=== PATIENT | female | born 1940 | race Caucasian/White ===

== ENCOUNTER → 2018-02-21 | Day surgery (SDC) | payer MEDICARE, OTHER ==
--- NOTE | 2018-02-16 19:49 | HP ---
CC: Dr. Warner * HISTORY AND PHYSICAL/CONSULTATION NOTE: DATE OF ADMISSION FOR SURGERY: 02/21/18 and 03/07/18 HISTORY OF PRESENT ILLNESS: Chuyita Miller is a 77-year-old woman scheduled for cataract extraction of the left eye under local anesthesia on 02/21/18 and on the right eye on 03/07/18. PAST MEDICAL HISTORY: The patient's medical problems are as follows: 1. Chronic kidney disease, stage 4. 2. Essential hypertension. 3. Type 2 diabetes mellitus with nephropathy. 4. Asthma. 5. Chronic venous insufficiency. 6. Spinal stenosis, lumbar region. 7. Osteoarthritis. 8. Hyperlipidemia. 9. History of obstructive sleep apnea. 10. Gastroesophageal reflux disease. 11. Aortic stenosis. 12. History of carotid stenosis status post endarterectomy. 13. History of paroxysmal atrial fibrillation. 14. Depression. 15. History of left branch retinal artery occlusion in 2014. PAST SURGICAL HISTORY: Prior surgeries included carotid endarterectomy, tonsillectomy. CURRENT MEDICATIONS: 1. Escitalopram 10 mg daily. 2. Sodium bicarb 650 mg 4 times a day. 3. Actos 45 mg every day. 4. Losartan 50 mg every day. 5. Breo Ellipta 200/25 every day. 6. Diltiazem 120 mg daily. 7. Montelukast 10 mg every day. 8. Omeprazole 20 mg every day. 9. Allopurinol 300 mg daily. 10. Glipizide 5 mg a half tablet every day. 11. ProAir 2 puffs q.4 h. p.r.n. asthma. 12. Patanol 0.1% eye drops twice a day as needed for allergies. 13. Aspirin 81 mg every day. 14. Iron bisglycinate 25 mg every day. 15. B12 of 2500 mcg daily. 16. Acetaminophen 325 mg 2 tablets every 4 hours as needed. ALLERGIES: To PHENOBARBITAL, INDOMETHACIN, AUGMENTIN, and/or ERYTHROMYCIN caused elevated LFTs. FAMILY HISTORY: Noncontributory. SOCIAL AND PERSONAL HISTORY: The patient is single. She lives in an apartment in [facility]. 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 REVIEW OF SYSTEMS: Otherwise positive for easy bruisability, swelling of her ankles, nocturia, neck and ankle pain, and depression. PHYSICAL EXAMINATION GENERAL: She is an elderly female, in no acute distress. VITAL SIGNS: Blood pressure 136/60, pulse 72, respirations 18, temperature 96.8. HEENT: Atraumatic, normocephalic. Full EOMs. Mouth: Pharynx unremarkable. NECK: Supple. There is no thyromegaly. No bruits. Nodes are without adenopathy. BREASTS: Without masses. CHEST: Clear. HEART: Normal S1 and S2. There is a grade 2/6 systolic murmur at the base. No rubs or gallops. Pulses are full throughout. ABDOMEN: Soft, nontender. There is no hepatosplenomegaly. There are no hernias or masses. Bowel sounds are active. EXTREMITIES: Without cyanosis, clubbing, or edema at this time. MUSCULOSKELETAL: Mild bilateral bunions. NEUROLOGIC: She is alert, oriented. Cranial nerves are intact. She has normal strength in the lower extremities. DTRs are 2+. Knee and ankle jerks are symmetric. Monofilament sensation is intact. Gait is normal. She is tearful. SKIN: Warm and dry with tattoos. IMPRESSION: The patient has medical problems as noted above. There are no contraindications to surgery as planned. I will be available in the perioperative period should any questions or problems arise. [id number]/[facility] #: [id number] [place]
[~2018-02-21] MED LIST: Acetaminophen TAB* 325 MG PO PRN; Buffered Lidocaine 0.9% SYRIN* 5 ML/SYR SYRINGE INTRADERM ONE; Cyclopentolate 1% OPTH.SOL* 2 ML BTL ONE; Ketorolac 0.5% OPHTH (NF) 0.5 % 5 ML BTL ONE; Lidocaine 1%* 5 ML VIAL ONE; Lidocaine 2% EPI 1:200000 MPF*10-20 ML VIAL ONE; Midazolam* 1 MG/ML 2 ML VIAL (2 MG) ONE; Neomycin/Polymy/Dex OPTH.SUSP* MAXITROL 0.1% 5 ML ONE; Phenylephrine 2.5% OPTH.SOL* 2 ML BTL ONE; Povidone Iodine 5% OPTH* 30 ML BTL ONE; Proparacaine 0.5% OPHTH.SOL* 15 ML BTL ONE; acetaZOLAMIDE TAB* 250 MG ONE
[2018-02-21 14:29] VITALS: BP 131/46
--- NOTE | 2018-02-22 03:58 | OP ---
DATE OF OPERATION: 02/21/18 [facility] DATE OF : 40 SURGEON: Nasir Warner MD PREOPERATIVE DIAGNOSIS: Cataract, left eye. POSTOPERATIVE DIAGNOSIS: Cataract, left eye. OPERATIVE PROCEDURE: Extracapsular cataract extraction with intraocular lens implant left eye. DESCRIPTION OF PROCEDURE: The patient was brought to the operating room after being given 1/2% Alcaine with epinephrine drops in the preoperative area. The eye was prepped and draped in the usual sterile fashion. Sterile drape and eyelid speculum were placed. Again, topical 1/2% Alcaine with epinephrine was given. A paracentesis incision was made at the 3 o'clock position with the No.75 blade. Clear cornea incision 2.2 x 2.2-mm was created at the 6 o'clock position starting at the anterior limbus using the 2.2-mm keratome. The anterior chamber was irrigated with 0.4 mL of 1% non-preservative intracameral lidocaine and filled with DisCoVisc. A capsulorrhexis was completed using the cystotome and the Utrata forceps. Hydrodissection was performed with balanced salt solution. The lens nucleus was removed with the Phacoemulsification handpiece without incident. Cortex was removed with the irrigation-aspiration handpiece. The capsular bag was re-inflated using DisCoVisc and an [id number] 20.5 implant was inserted with the shooter. The irrigation-aspiration handpiece was used to remove all residual DisCoVisc. The eye was refilled with balanced salt solution and the wound checked and found to be watertight. Topical Maxitrol drops were given. [id number]/[facility] #: [id number] [facility]
== END | disposition home or self-care (01) ==
LOC: OREAST 11:26
PROVIDERS: ATTEND Specialist
DX: H25.812 Combined forms of age-related cataract, left eye (principal); H34.232 Retinal artery branch occlusion, left eye; E11.9 Type 2 diabetes mellitus without complications; Z79.84 Long term (current) use of oral hypoglycemic drugs; J44.9 Chronic obstructive pulmonary disease, unspecified; G47.33 Obstructive sleep apnea (adult) (pediatric); N18.4 Chronic kidney disease, stage 4 (severe); I12.9 Hypertensive chronic kidney disease with stage 1 through stage 4 chronic kidney disease, or unspecified chronic kidney disease; M19.90 Unspecified osteoarthritis, unspecified site; I48.0 Paroxysmal atrial fibrillation; E78.5 Hyperlipidemia, unspecified; K21.9 Gastro-esophageal reflux disease without esophagitis
CPT/HCPCS: A9270-GY; J2250; V2632

== ENCOUNTER 2018-03-07 08:56 | Day surgery (SDC) | payer MEDICARE, OTHER ==
[~2018-03-07 08:56] MED LIST changes: -Acetaminophen TAB* 325 MG PO PRN; -Cyclopentolate 1% OPTH.SOL* 2 ML BTL ONE; -Ketorolac 0.5% OPHTH (NF) 0.5 % 5 ML BTL ONE; -Lidocaine 1%* 5 ML VIAL ONE; -Lidocaine 2% EPI 1:200000 MPF*10-20 ML VIAL ONE; -Midazolam* 1 MG/ML 2 ML VIAL (2 MG) ONE; -Neomycin/Polymy/Dex OPTH.SUSP* MAXITROL 0.1% 5 ML ONE; -Phenylephrine 2.5% OPTH.SOL* 2 ML BTL ONE; -Povidone Iodine 5% OPTH* 30 ML BTL ONE; -Proparacaine 0.5% OPHTH.SOL* 15 ML BTL ONE; -acetaZOLAMIDE TAB* 250 MG ONE
[2018-03-07] MEDS ORDERED: Midazolam* 1 MG/ML 2 ML VIAL (2 MG) ONE (11:44)
[2018-03-07 12:03] VITALS: BP 149/52
[2018-03-07] MEDS ORDERED: Phenylephrine 2.5% OPTH.SOL* 2 ML BTL ONE (12:51)
[2018-03-07] MEDS ORDERED: Ketorolac 0.5% OPHTH (NF) 0.5 % 5 ML BTL ONE (12:51)
[2018-03-07] MEDS ORDERED: Lidocaine 1%* 5 ML VIAL ONE (12:51)
[2018-03-07] MEDS ORDERED: Lidocaine 2% EPI 1:200000 MPF*10-20 ML VIAL ONE (12:51)
[2018-03-07] MEDS ORDERED: Cyclopentolate 1% OPTH.SOL* 2 ML BTL ONE (12:51)
[2018-03-07] MEDS ORDERED: Neomycin/Polymy/Dex OPTH.SUSP* MAXITROL 0.1% 5 ML ONE (12:51)
[2018-03-07] MEDS ORDERED: Povidone Iodine 5% OPTH* 30 ML BTL ONE (12:51)
[2018-03-07] MEDS ORDERED: acetaZOLAMIDE TAB* 250 MG ONE (12:51)
[2018-03-07] MEDS ORDERED: Proparacaine 0.5% OPHTH.SOL* 15 ML BTL ONE (12:52)
--- NOTE | 2018-03-08 06:54 | OP ---
DATE OF OPERATION: 03/07/18 [facility] DATE OF : 40 SURGEON: Nasir Warner M.D. PREOPERATIVE DIAGNOSIS: Cataract, right eye. POSTOPERATIVE DIAGNOSIS: Cataract, right eye. OPERATIVE PROCEDURE: Extracapsular cataract extraction with intraocular lens implant right eye. DESCRIPTION OF PROCEDURE: The patient was brought to the operating room after being given 1/2% Alcaine with epinephrine drops in the preoperative area. The eye was prepped and draped in the usual sterile fashion. Sterile drape and eyelid speculum were placed. Again, topical 1/2% Alcaine with epinephrine was given. A paracentesis incision was made at the 9 o'clock position with the No.75 blade. Clear cornea incision 2.2 x 2.2-mm was created at the 12 o'clock position starting at the anterior limbus using the 2.2-mm keratome. The anterior chamber was irrigated with 0.4 mL of 1% non-preservative intracameral lidocaine and filled with DisCoVisc. A capsulorrhexis was completed using the cystotome and the Utrata forceps. Hydrodissection was performed with balanced salt solution. The lens nucleus was removed with the Phacoemulsification handpiece without incident. Cortex was removed with the irrigation-aspiration handpiece. The capsular bag was re-inflated using DisCoVisc and an [id number] 20.5 implant was inserted with the shooter, and oriented to the 85 degree meridian. Horizontal reference york were made without the patient seated in the preoperative area. The irrigation-aspiration handpiece was used to remove all residual DisCoVisc. The eye was refilled with balanced salt solution and the wound checked and found to be watertight. Topical Maxitrol drops were given. [id number]/[facility] #: [id number] [facility]
== END 2018-03-07 12:09 | disposition home or self-care (01) ==
LOC: OREAST 08:56
PROVIDERS: ATTEND Specialist
DX: H25.811 Combined forms of age-related cataract, right eye (principal); H34.232 Retinal artery branch occlusion, left eye; E11.9 Type 2 diabetes mellitus without complications; J45.909 Unspecified asthma, uncomplicated; J44.9 Chronic obstructive pulmonary disease, unspecified; G47.33 Obstructive sleep apnea (adult) (pediatric); I12.9 Hypertensive chronic kidney disease with stage 1 through stage 4 chronic kidney disease, or unspecified chronic kidney disease; E78.5 Hyperlipidemia, unspecified; Z86.73 Personal history of transient ischemic attack (TIA), and cerebral infarction without residual deficits; I35.0 Nonrheumatic aortic (valve) stenosis; N18.9 Chronic kidney disease, unspecified
CPT/HCPCS: A9270-GY; J2250; V2787

== ENCOUNTER 2018-12-13 12:28 | Observation (INO) | payer MEDICARE, OTHER ==
[2018-12-13 13:12] LABS: ABS Eosinophils 0.5 10^3/ul (0-0.6); ABS Lymphocytes 0.7 10^3/ul (1.0-4.8); ABS Monocytes 0.2 10^3/ul (0-0.8); ABS Neutrophils 2.6 10^3/ul (1.5-7.7); Eosinophil % 13.4 %; Hematocrit 27 % (35-47); Hemoglobin 8.8 g/dL (12.0-16.0); Lymphocyte % 17.7 %; Mean Corpuscular HGB Conc 33 g/dL (31-36); Mean Corpuscular Hemoglobin 30 pg (27-31); Mean Corpuscular Volume 92 fL (80-97); Mean Platelet Volume 9.2 fL (7.4-10.4); Platelet Count 227 10^3/uL (150-450); Red Blood Count 2.91 10^6 /uL (3.70-4.87); Red Cell Distribution Width 16 % (10-15); White Blood Count 4.1 10^3/uL (3.5-10.8)
[2018-12-13 13:31] LABS: INR 0.97 (0.82-1.09)
[2018-12-13 13:38] LABS: Albumin 3.7 g/dL (3.2-5.2); Albumin/Globulin Ratio 1.5 (1-3); BUN/Creatinine Ratio 23.9 (8-20); Calcium 9.1 mg/dL (8.6-10.3); EGFR African American 31.3 (>60); EGFR Non-African American 25.9 (>60); Globulin 2.5 g/dL (2-4); Potassium 4.4 mmol/L (3.5-5.0); Total Bilirubin 0.4 mg/dL (0.2-1.0); Total Protein 6.2 g/dL (6.4-8.9)
[2018-12-13 13:39] LABS: Troponin I 0.02 ng/mL (<0.04)
--- NOTE | 2018-12-13 14:35 | ED ---
Upper Extremity Pain - HPI Summary HPI Summary: Patient is a 78 y/o F presenting to ED with complaints of left forearm pain that suddenly onset at around 1130 today, 12/13/18. Patient additionally notes some issues with using her left hand. She states that she was getting ready to see her cousin when Sx onset. Patient states that she was concerned for MS and decided to come to ED for evaluation. At present, she reports that pain is mostly resolved but notes some tingling at her arm. Moving her fingers is noted to aggravate Sx. CP, SOB, dizziness, difficulty with speech, ambulation, and balance are denied. No recent exertion is noted. She has chronic pain in her neck which she relates to how she sleeps. She has had no injections in her neck for arthritis and has never had to be evaluated by physician for her neck issues. Patient has Hx of TIA, diabetes. She denies Hx of cardiac issues. PCP is Aleta Qureshi. Patient does not report fever, chills, erythema of eyes, sore throat, cough, abdominal pain, N/V, dysuria, hematuria, myalgia, edema, and rash. On triage, pain is rated 7/10, nothing is noted to aggravate/alleviate Sx. Home medications and allergies are reviewed. - History of Current Complaint Chief Complaint: EDChestPainROMI Stated Complaint: ARM PAIN Time Seen by Provider: 12/13/18 14:16 Hx Obtained From: Patient Mechanism Of Injury: Other - no SHEEBA Onset/Duration: Started Hours Ago, Still Present Timing: Lasting Hours Severity Initially: Severe Severity Currently: Mild Pain Location: Forearm Aggravating Factor(s): Movement - of fingers Associated Signs & Symptoms: Positive: Numbness/Tingling - of left forearm, Other - negative - chills, erythema of eyes, sore throat, cough, abdominal pain , dysuria, hematuria, rash, dizziness, difficulty with speech, ambulation, and balance. Negative: Swelling, Fever, Weakness, Chest Pain, SOB, Nausea, Vomiting - Allergies/Home Medications Allergies/Adverse Reactions: Allergies Allergy/AdvReac Type Severity Reaction Status Date / Time amoxicillin Allergy GI Upset Verified 12/13/18 14:25 clavulanic acid Allergy GI Upset Verified 12/13/18 14:25 phenobarbital Allergy Rash Verified 12/13/18 14:25 PMH/Surg Hx/FS Hx/Imm Hx Endocrine/Hematology History: Reports: Hx Diabetes, Hx Anemia - chronic Denies: Hx Anticoagulant Therapy Cardiovascular History: Reports: Hx Hypercholesterolemia, Hx Hypertension, Other Cardiovascular Problems/Disorders - right carotid stenosis 50%. Denies: Hx Pacemaker/ICD Respiratory History: Reports: Hx Asthma, Hx Chronic Obstructive Pulmonary Disease (COPD), Hx Sleep Apnea - STATES MILD . NO Tx, Other Respiratory Problems /Disorders - COPD GI History: Reports: Hx Gastroesophageal Reflux Disease History: Reports: Hx Chronic Renal Failure - stage 3 Denies: Hx Dialysis, Hx Renal Disease Musculoskeletal History: Reports: Hx Arthritis, Hx Gout Denies: Hx Osteoporosis Sensory History: Reports: Hx Cataracts - BILATERAL, Hx Contacts or Glasses, Hx Deafness - left ear Denies: Hx Hearing Aid Opthamlomology History: Reports: Hx Cataracts - BILATERAL, Hx Contacts or Glasses Psychiatric History: Reports: Hx Anxiety - ON DAILY MEDS, Hx Depression Denies: Hx Panic Disorder - Surgical History Surgery Procedure, Year, and Place: tonsilectomy, left carotid endarterectomy Hx Anesthesia Reactions: No - Immunization History Date of Tetanus Vaccine: remote Date of Influenza Vaccine: 2014 Infectious Disease History: No Infectious Disease History: Denies: Hx Clostridium Difficile, Hx Hepatitis, Hx Human Immunodeficiency Virus (HIV), Hx of Known/Suspected MRSA, Hx Shingles, Hx Tuberculosis, Hx Known/ Suspected VRE, Hx Known/Suspected VRSA, History Other Infectious Disease, Traveled Outside the [place] in Last 30 Days - Family History Known Family History: Positive: Cardiac Disease, Diabetes - Social History Alcohol Use: Weekly Alcohol Amount: 2 times a week then 3-4 hard drinks on a drinking day Hx Substance Use: No Substance Use Type: Reports: Marijuana Substance Use Comment - Amount & Last Used: USES DAILY, REFRAIN 3 DAYS PRE OP Hx Tobacco Use: No Smoking Status (MU): Never Smoked Tobacco Have You Smoked in the Last Year: No Review of Systems Negative: Fever, Chills Negative: Erythema Negative: Sore Throat Negative: Chest Pain Negative: Shortness Of Breath, Cough Negative: Abdominal Pain, Vomiting, Nausea Negative: dysuria, hematuria Positive: Myalgia - positive - left forearm pain . Negative: Edema Negative: Rash Neurological: Other - positive - difficulty using her left hand, tingling at left forearm; negative - dizziness, difficulty with speech, ambulation, and balance All Other Systems Reviewed And Are Negative: Yes Physical Exam - Summary Physical Exam Summary: Constitutional: Well-developed, Well-nourished, Alert. (-) Distressed Skin: Warm, Dry HENT: Normocephalic; Atraumatic Eyes: Conjunctiva normal Neck: Musculoskeletal ROM normal neck. (-) JVD, (-) Stridor, (-) Tracheal deviation Cardio: Rhythm regular, rate normal, Heart sounds normal; Intact distal pulses; The pedal pulses are 2+ and symmetric. Radial pulses are 2+ and symmetric. (-) Murmur Pulmonary/Chest wall: Effort normal. (-) Respiratory distress, (-) Wheezes, (-) Rales Abd: Soft. (-) Tenderness, (-) Distension, (-) Guarding, (-) Rebound Musculoskeletal: (-) Edema Lymph: (-) Cervical adenopathy Neuro: Alert, Oriented x3, Strength normal, Cranial nerves II-XII are grossly intact. (-) Dysmetria, (-) Nystagmus, (-) Ataxia by finger to nose testing, (-) Sensory deficit. GCS 15. Psych: Mood and affect Normal Triage Information Reviewed: Yes Vital Signs On Initial Exam: Initial Vitals Temp Pulse Resp BP Pulse Ox 98.8 F 72 16 156/65 98 12/13/18 12:29 12/13/18 12:29 12/13/18 12:29 12/13/18 12:29 12/13/18 12:29 Vital Signs Reviewed: Yes - [place] Coma Scale Best Eye Response: 4 - Spontaneous Best Motor Response: 6 - Obeys Commands Best Verbal Response: 5 - Oriented Coma Scale Total: 15 Diagnostics - Vital Signs Vital Signs Temp Pulse Resp BP Pulse Ox 12/13/18 12:29 98.8 F 72 16 156/65 98 - Laboratory Lab Results: Lab Results 12/13/18 12/13/18 12/13/18 Range/Units 13:00 13:00 13:00 WBC 4.1 (3.5-10.8) 10^3/uL RBC 2.91 L (3.70-4.87) 10^6 /uL Hgb 8.8 L (12.0-16.0) g/dL Hct 27 L (35-47) % MCV 92 (80-97) fL MCH 30 (27-31) pg MCHC 33 (31-36) g/dL RDW 16 H (10-15) % Plt Count 227 (150-450) 10^3/uL MPV 9.2 (7.4-10.4) fL Neut % (Auto) 62.9 % Lymph % (Auto) 17.7 % Foster % (Auto) 4.8 % Eos % (Auto) 13.4 % Baso % (Auto) 1.2 % Absolute Neuts (auto) 2.6 (1.5-7.7) 10^3/ul Absolute Lymphs (auto) 0.7 L (1.0-4.8) 10^3/ul Absolute Monos (auto) 0.2 (0-0.8) 10^3/ul Absolute Eos (auto) 0.5 (0-0.6) 10^3/ul Absolute Basos (auto) 0.0 (0-0.2) 10^3/ul Absolute Nucleated RBC 0.0 10^3/ul Nucleated RBC % 0.0 INR (Anticoag Therapy) 0.97 (0.82-1.09) Sodium 138 (135-145) mmol/L Potassium 4.4 (3.5-5.0) mmol/L Chloride 105 (101-111) mmol/L Carbon Dioxide 25 (22-32) mmol/L Anion Gap 8 (2-11) mmol/L BUN 45 H (6-24) mg/dL Creatinine 1.88 H (0.51-0.95) mg/dL Est GFR ( Amer) 31.3 (>60) Est GFR (Non-Af Amer) 25.9 (>60) BUN/Creatinine Ratio 23.9 H (8-20) Glucose 265 H (70-100) mg/dL Calcium 9.1 (8.6-10.3) mg/dL Total Bilirubin 0.40 (0.2-1.0) mg/dL AST 11 L (13-39) U/L ALT 6 L (7-52) U/L Alkaline Phosphatase 70 (34-104) U/L Troponin I 0.02 (<0.04) ng/mL Total Protein 6.2 L (6.4-8.9) g/dL Albumin 3.7 (3.2-5.2) g/dL Globulin 2.5 (2-4) g/dL Albumin/Globulin Ratio 1.5 (1-3) Result Diagrams: 12/13/18 13:00 12/13/18 13:00 Lab Statement: Any lab studies that have been ordered have been reviewed, and results considered in the medical decision making process. - CT BRAIN CT CT Interpretation Completed By: Radiologist Summary of CT Findings: IMPRESSION: 1. No acute intracranial abnormality by CT. 2. 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 3. Mild chronic small vessel ischemic disease is likely. 4. Mild cerebral volume loss. THIS REPORT WAS REVIEWED BY DR. CAMPOS CERVICAL SPINE CT CT Interpretation Completed By: Radiologist Summary of CT Findings: IMPRESSION: 1. No cervical spine fracture. 2. Varying degrees of multilevel spondylosis results in at least mild to moderate spinal. canal stenosis at C5-C6 and moderate right neural foraminal stenosis from C3-C4 through. C5-C6. 3. Grade 1 anterolisthesis of C3 on C4 and C7 on T1. THIS REPORT WAS REVIEWED BY DR. CAMPOS. - EKG 1235 Cardiac Rate: NL - rate of 73 BPM EKG Rhythm: Sinus Rhythm Summary of EKG Findings: EKG showed NSR with rate of 73 BPM, no STEMI. This EKG was reviewed and interpreted by Dr. Campos. Re-Evaluation - Re-Evaluation First Eval Re-Evaluation Time: 15:36 Comment: Patient is agreeable with admission. Course/Dx - Course Course Of Treatment: Patient is a 78 y/o F presenting to ED with complaints of left forearm pain that suddenly onset at around 1130 today, 12/13/18. Patient additionally notes some issues with using her left hand. At present, she reports that pain is mostly resolved but notes some tingling at her arm. Moving her fingers is noted to aggravate Sx. CP, SOB, dizziness, difficulty with speech , ambulation, and balance are denied. On physical exam, Alert, Oriented x3, Strength normal, Cranial nerves II-XII are grossly intact. (-) Dysmetria, (-) Nystagmus, (-) Ataxia by finger to nose testing, (-) Sensory deficit. GCS 15. Bloodwork was obtained. Abnormal labs include RBC 2.91, Hgb 8.8, Hct 27, RDW 16 , absolute lymphs 0.7, BUN 45, creatinine 1.88, BUN/creatinine ratio 23.9, glucose 265, AST 11, ALT 6, total protein 6.2. Trop was negative. BRAIN CT IMPRESSION: 1. No acute intracranial abnormality by CT. 2. 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 3. Mild chronic small vessel ischemic disease is likely. 4. Mild cerebral volume loss. CERVICAL SPINE CT IMPRESSION : 1. No cervical spine fracture. 2. Varying degrees of multilevel spondylosis results in at least mild to moderate spinal. canal stenosis at C5- C6 and moderate right neural foraminal stenosis from C3-C4 through. C5-C6. 3. Grade 1 anterolisthesis of C3 on C4 and C7 on T1. Patient's case was discussed with Dr. Grajeda, Dr. Grajeda accepts the patient for admission. Patient is agreeable with admission. - Diagnoses Provider Diagnoses: CVA (cerebral vascular accident) - Physician Notifications Discussed Care of Patient With: Brielle Grajeda Time Discussed With Above Provider: 15:34 Instructed by Provider To: Other - Patient's case was discussed with Dr. Grajeda , Dr. Grajeda accepts the patient for admission. Discharge ED - Sign-Out/Discharge Documenting (check all that apply): Patient Departure - admit Patient Received Moderate/Deep Sedation with Procedure: No - Discharge Plan Condition: Stable Disposition: ADMITTED TO [facility] Referrals: Aleta Qureshi MD [Primary Care Provider] - - Attestation Statements Document Initiated by Scribe: Yes Documenting Scribe: TAURUS HERNANDEZ Provider For Whom Scribe is Documenting (Include Credential): ELENA CAMPOS MD Scribe Attestation: ITAURUS, scribed for ELENA CAMPOS MD on 12/13/18 at 1613. Status of Scribe Document: Ready
[2018-12-13] MEDS ORDERED: Albuterol HFA INHALER* 8 gm MDI INH PRN (16:40)
[2018-12-13] MEDS ORDERED: Sodium Bicarbonate (ANTACID)* 650 MG TAB PO PRN (16:40)
[2018-12-13] MEDS ORDERED: Dextrose 50% VIAL 50 ml IV PUSH PRN (16:50)
--- NOTE | 2018-12-13 19:03 | HP ---
CC: Dr. Aleta Qureshi* HISTORY AND PHYSICAL: DATE OF ADMISSION: 12/13/18 TIME OF EVALUATION: 4:15 p.m. PRIMARY CARE PROVIDER: Dr. Aleta Qureshi. CHIEF COMPLAINT: "My arm hurts." HISTORY OF PRESENT ILLNESS: Mrs. Miller is a 78-year-old lady with a past medical history of CKD stage 3 to 4, hypertension, type 2 diabetes, diabetic nephropathy, asthma, chronic venous insufficiency, lumbar spinal stenosis, osteoarthritis, hyperlipidemia, obstructive sleep apnea, GERD, aortic stenosis, carotid stenosis status post endarterectomy, paroxysmal atrial fibrillation, depression, history of left branch retinal artery occlusion, who presents to the emergency room with complaints of left arm pain. The patient states that she was in her usual state of health this morning. She got up and had her breakfast, was able to do all her morning routine including applying her makeup and she states around 11:30 in the morning, she developed sudden onset of left arm pain described as severe. She cannot describe the nature of this pain, but states that she became anxious, felt some shortness of breath and decided to drive herself to the emergency room. She states that when she got to the emergency room, she felt her blood pressure was high and she was described as very anxious and tearful. She states that after arriving to the emergency room, she was able to calm down and around 2 p.m., the pain disappeared the same way it had started with no medications received in the emergency room. The patient states yesterday she went to grocery shopping and she carried heavy bags with her left arm, but her arm was not sore when she woke up this morning. Although, the emergency room provider had initially described her case as left arm numbness associated with hand weakness. The patient states that she had no numbness or tingling whatsoever to her left arm. She states that she could move her hand, but moving her hand would make the pain worse, but other than that, she denies any difficulties with movement. She denies any prior episodes of chest pain like that and as described above, says that she was feeling well with no other symptoms before this episode happened. She denies nausea, vomiting, diarrhea, chest pain, palpitations, urinary complaints, cough, fever. PAST MEDICAL HISTORY: 1. CKD, stage 3 to 4. 2. Hypertension. 3. Type 2 diabetes. 4. Diabetic nephropathy. 5. Asthma. 6. Chronic venous insufficiency. 7. Lumbar spine stenosis. 8. Osteoarthritis. 9. Hyperlipidemia. 10. Obstructive sleep apnea. 11. GERD. 12. Aortic stenosis. 13. Carotid stenosis, status post endarterectomy, as per patient it was the left side. 14. Mild aortic stenosis. 15. Paroxysmal atrial fibrillation. 16. Depression. 17. Left branch retinal artery occlusion in 2015. MEDICATION LIST: 1. Albuterol HFA 1 puff inhale q.4 hours p.r.n. shortness of breath. 2. Allopurinol 300 mg p.o. q.a.m. 3. Aspirin 81 mg p.o. daily. 4. Atorvastatin 40 mg p.o. q.a.m. 5. Vitamin B12 1000 mcg p.o. daily. 6. Cardizem CD 120 mg p.o. q.a.m. 7. Escitalopram 15 mg p.o. daily. 8. Breo Ellipta 200/25 one puff inhale in morning. 9. Glipizide 2.5 mg p.o. in the morning. 10. Iron 100 Plus 1 tablet p.o. daily. 11. Losartan 50 mg p.o. daily. 12. Montelukast 10 mg p.o. daily. 13. Omeprazole 20 mg p.o. daily. 14. Pioglitazone 45 mg p.o. daily. 15. Sodium bicarb 1300 mg p.o. q.4 hours p.r.n. indigestion. ALLERGIES: The patient has had reactions to AMOXICILLIN with CLAVULANIC ACID ( GI upset) and PHENOBARBITAL (rash), and prior H and P also lists INDOMETHACIN and ERYTHROMYCIN. FAMILY HISTORY: As described is noncontributory. SOCIAL HISTORY: No history of tobacco, alcohol, or drug abuse. 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 She lives in [place] by herself. Surrogate decision maker is her friend, Keila Galan, phone number is [phone]. REVIEW OF SYSTEMS: A 14-point review of systems was performed and all the pertinent negative and positive findings are in the HPI. PHYSICAL EXAMINATION GENERAL: The patient is a pleasant elderly lady, sitting up in the ED stretcher , in no acute distress. VITAL SIGNS: Temperature 98.8, heart rate is 64, respiratory rate is 16, oxygen saturation 95% on room air, blood pressure is 134/63. HEENT: Pupils are equal. The patient is status post cataract surgery. Moist mucous membranes. CHEST: Breath sounds present bilaterally with no added sounds. CVS: Normal S1, S2. Regular rate and rhythm. I do not appreciate a murmur at this time. ABDOMEN: Soft. Bowel sounds present. EXTREMITIES: No edema. NEURO: The patient is alert, awake, and oriented x3. She is able to move all 4 extremities with power 5/5 on all 4. Her face is symmetric. Speech is clear. Sensation is intact. DIAGNOSTIC STUDIES/LAB DATA: The patient had a CBC that showed a WBC of 4.1, hemoglobin of 8.8, hematocrit of 27, platelets of 227 with 62% neutrophils. INR is 0.97. Chemistry showed a sodium of 138, potassium 4.5, chloride of 105, bicarb of 25, anion gap of 8, BUN of 45, creatinine of 1.8, glucose of 265, calcium of 9.1. LFTs were normal. AST was 11, ALT was 6. First [address] of the brain without contrast showed no acute intracranial abnormality, just an old lacunar infarct in the right centrum semiovale and mild chronic small vessel ischemic disease. CT of the cervical spine showed no cervical spine fracture. There are varying degrees of multilevel spondylosis that results in at least mild to moderate spinal stenosis at C5-6 and moderate right neural foraminal stenosis from C3-4 through C5- C6. Grade I anterolisthesis of C3-C4 and C7-T1. EKG done on 12/13/18 at 12:31 p.m. shows sinus rhythm with T-wave inversions in V2, T-wave flattening in V3, and those seemed to be new when compared to her prior EKG from 2016. ASSESSMENT AND PLAN: Mrs. Miller is a 78-year-old lady with a complex past medical history that includes type 2 diabetes with diabetic nephropathy and chronic kidney disease stage 3 to 4, hypertension, hyperlipidemia, carotid stenosis, paroxysmal atrial fibrillation, left branch retinal artery occlusion, who presented to the emergency room after a self-noted episode of left arm pain. 1. Left arm pain. Initially, the patient's symptoms were described to me as left arm numbness and difficulty moving her hand, but when talking to the patient, she is very clear that the symptoms she had was left arm pain. She does have a history of carotid stenosis, status post endarterectomy on the left as per the patient and she does have risk factors for stroke and transient ischemic attack. She will be admitted as observation and I am going to check carotid ultrasound. With her renal function, a CTA of the head and neck is not possible at this time. Depending on her evaluation, we could consider MRI/MRA of the head and neck. I am concerned, her left arm pain may represent an anginal episode. The patient has several risk factors for coronary artery disease and her EKG does show new EKG changes, although her troponins remain negative. We will rule out acute coronary syndrome and she will undergo a nuclear medicine exercise stress test in the morning. She will be continued on aspirin and statin. Another possibility is that her left arm pain could be musculoskeletal associated with carrying heavy bags yesterday, but the sudden onset and relief of the pain suggest otherwise. She also has osteoarthritis of her cervical spine, but the pain also does not seem to follow the distribution of radiculopathy. 2. Type 2 diabetes. The patient will continue her pioglitazone and glipizide. We will give her her dose after the stress test when she is able to eat again. In the meantime, I am going to check her fingerstick and cover with lispro sliding scale. 3. Hypertension. It is controlled at this time. We will continue losartan, though we will hold her calcium channel pedro in preparation for stress test. 4. Hyperlipidemia. We will continue statin and we will check a fasting lipid profile. 5. DVT prophylaxis: The patient has a score of 4 on the DVT Prophylaxis Assessment Guide and she will be started on subcutaneous heparin. 6. Code status is full. TIME SPENT: Approximately 55 minutes was spent with the patient interview, medical records review, physical examination to complete this admission, more than half of this time was spent [id number] with the patient and coordination of care. Her primary care provider, Dr. Qureshi was contacted and notified of this admission. [id number]/[facility] #: [id number] [place]
[2018-12-13] MEDS: Heparin VIAL(*) 5000 UNITS/ML VIAL (FIVE THOUSAND) SUBCUT SCH (20:09)
[2018-12-13] MEDS: Insulin LISPRO* 1 UNITS UNIT SUBCUT SCH (20:31)
[2018-12-14 06:19] LABS: HDL Cholesterol 56.6 mg/dL
[2018-12-14] MEDS: Heparin VIAL(*) 5000 UNITS/ML VIAL (FIVE THOUSAND) SUBCUT SCH ×2 (06:40→16:03)
[2018-12-14] MEDS: Insulin LISPRO* 1 UNITS UNIT SUBCUT SCH ×3 (08:10→16:33)
[2018-12-14 08:30] VITALS: BP 150/60
[2018-12-14] MEDS ORDERED: Pioglitazone TAB* 15 MG PO SCH ×2 (09:00→13:00)
[2018-12-14] MEDS ORDERED: Atorvastatin* 40 MG TAB PO SCH (09:00)
[2018-12-14] MEDS ORDERED: Cyanocobalamin TAB* 500 MCG PO SCH (09:00)
[2018-12-14] MEDS ORDERED: Allopurinol TAB* 300 MG PO SCH (09:00)
[2018-12-14] MEDS ORDERED: Mometasone/Formoter 200/5 MDI INH SCH (09:00)
[2018-12-14] MEDS ORDERED: Losartan TAB* 25 MG PO SCH (09:00)
[2018-12-14] MEDS ORDERED: Aspirin EC TAB* 81 MG TAB.EC PO SCH (09:00)
[2018-12-14] MEDS ORDERED: Escitalopram * 10 MG TAB PO SCH (09:00)
[2018-12-14] MEDS ORDERED: Pantoprazole TAB * 40 MG TAB PO SCH (09:00)
[2018-12-14] MEDS ORDERED: Montelukast Sodium TAB* 10 MG PO SCH (09:00)
[2018-12-14] MEDS ORDERED: glipiZIDE TAB* 5 MG PO SCH ×2 (09:00→13:00)
[2018-12-14] MEDS ORDERED: Regadenoson* 0.4 MG/5 ML SYRINGE ONE (13:37)
--- NOTE | 2018-12-21 12:42 | DS ---
DISCHARGE SUMMARY: DATE OF ADMISSION: 12/13/18 DATE OF DISCHARGE: 12/14/18 DISCHARGE DIAGNOSES: 1. Left arm pain, etiology uncertain. 2. Chronic kidney disease. 3. Type 2 diabetes mellitus, blood sugar controlled. 4. Hypertension. 5. History of asthma. 6. History of lumbar spinal stenosis. 7. Chronic venous insufficiency. 8. History of carotid artery stenosis, status post carotid endarterectomy on the left. 9. Aortic stenosis. 10. History of paroxysmal atrial fibrillation. 11. History of depression. 12. History of left branch retinal artery occlusion. 13. Gastroesophageal reflux disease. 14. History of obstructive sleep apnea. 15. Osteoarthritis. 16. Anemia of chronic disease/kidney disease. 17. Hyperlipidemia, treated. 18. 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 19. Cervical spondylosis. HISTORY OF PRESENT ILLNESS: The patient is a 78-year-old woman admitted with left arm pain. Please see the dictated admission note for details of the present illness, past medical history, family history, social and personal history, review of systems, and physical examination. LABORATORY DATA: CBC: WBC 4.8, H and H 8.8/27, MCV 92, PLT 227,000. INR 0.97. Chemistries on admission: Sodium 138, potassium 4.4, chloride 105, CO2 of 25, BUN/creatinine 45/1.88, glucose 265. Rest of the comprehensive metabolic panel was within normal limits. Troponins were 0.02, 0.03, 0.03. Lipids were cholesterol 124, HDL 56.6, LDL 51, triglycerides 80. Hemoglobin A1c was well controlled at 6.3%. Blood sugars range from 98 to 236, fingersticks during her hospitalization. IMAGING: Brain CT on 12/13/18 showed old lacunar infarct in the right centrum semiovale, mild chronic small vessel ischemic disease, mild cerebral volume loss. Cervical spine CT on 12/13/18 showed no cervical spine fracture, varying degree of multilevel spondylosis resulting in mild to moderate spinal canal stenosis at C5-6 and moderate right neuroforaminal stenosis from C3-4 through C5 -6, grade 1 anterolisthesis of C3, C4, and C7 and T1. Carotid Doppler study on 12/13/18 showed no evidence of carotid stenosis. Nuclear medicine stress test on 12/14/18 showed no evidence of focal fixed or reversible perfusion defects suggesting a low risk study. EKG on 12/13/18 showed sinus rhythm, abnormal R wave progression, early transition, probable LVH, nonspecific T wave abnormality in anterolateral leads, borderline prolonged QT. Inverted T wave in aVL, V2, 3 new with more prominent T waves overall. Otherwise, no significant change since 10/05/15. EKG on 12/14/18 showed sinus rhythm, abnormal R wave progression, early transition, borderline prolonged QT interval. T wave inversions in aVL and V2 have resolved. Anterior changes may reflect altered lead placements. Otherwise, no significant change since the previous record of 12 lead on 12/13/18. HOSPITAL COURSE: The patient was initially admitted, placed on telemetry. By the time she was admitted, her left arm pain had resolved. It resolved while sitting in the waiting room prior to being seen in the ER. She was admitted for observation. There was concern that the left arm pain could be angina. Troponins were followed, were normal. She had a negative stress test. It was felt that the pain could relate to her neck, but it did not follow the distribution of radiculopathy. Code status was full. DVT prophylaxis, she was started on subcutaneous heparin. When I saw her on 12/14/18, she was feeling fine. There was no clear etiology present at that point. Stress test was negative. It is perhaps related to her cervical spondylosis. At the time of discharge, she is to be on her usual diet. Activity as tolerated. She is going home in improved condition. DISCHARGE MEDICATIONS: Her medications are as follows: 1. Diltiazem 120 mg each morning. 2. Montelukast 10 mg a day. 3. Losartan 50 mg daily. 4. Atorvastatin 40 mg daily. 5. Actos 45 mg daily. 6. Omeprazole 20 mg daily. 7. Allopurinol 300 mg daily. 8. Albuterol 1 puff every 4 hours p.r.n. 9. Sodium bicarbonate 650 mg tabs as before. 10. Cyanocobalamin 1000 mcg daily. 11. Aspirin 81 mg daily. 12. Breo Ellipta 1 inhalation daily. 13. Glipizide 2.5 mg each morning. 14. Multivitamins daily. 15. Escitalopram 15 mg daily. FOLLOWUP: Will be with myself within the next week. [id number]/[facility] #: [id number] [facility]
== END 2018-12-14 17:30 | disposition home or self-care (01) ==
LOC: ED 12:28 → MEDTELE 16:16
PROVIDERS: ADMIT Internal Medicine; ATTEND Internal Medicine Geriatric Medicine
DX: M79.632 Pain in left forearm (principal); E11.22 Type 2 diabetes mellitus with diabetic chronic kidney disease; I12.9 Hypertensive chronic kidney disease with stage 1 through stage 4 chronic kidney disease, or unspecified chronic kidney disease; N18.3 Chronic kidney disease, stage 3 (moderate); E11.21 Type 2 diabetes mellitus with diabetic nephropathy; J45.909 Unspecified asthma, uncomplicated; I87.2 Venous insufficiency (chronic) (peripheral); M48.061 Spinal stenosis, lumbar region without neurogenic claudication; E78.5 Hyperlipidemia, unspecified; G47.33 Obstructive sleep apnea (adult) (pediatric); K21.9 Gastro-esophageal reflux disease without esophagitis; I35.0 Nonrheumatic aortic (valve) stenosis; I48.0 Paroxysmal atrial fibrillation; F32.9 Major depressive disorder, single episode, unspecified; Z79.82 Long term (current) use of aspirin; Z79.899 Other long term (current) drug therapy; R94.31 Abnormal electrocardiogram [ECG] [EKG]
CPT/HCPCS: 36415; 70450; 72125; 78452; 80053; 80061; 83036; 84484; 85025; 85610; 93005; 93017; 93880; 94640; 96372; 99284; A9270-GY; A9502; G0378; J1644; J2785

== ENCOUNTER 2019-04-21 18:35 | Emergency (ER) | payer MEDICARE, OTHER ==
[2019-04-21] MEDS ORDERED: Lidocaine/Epineph/Tetraca SOL 4 ML BTL (LET solution) TOPICAL ONE (19:00)
[2019-04-21] MEDS ORDERED: Lidocaine 1% MPF ** 5 ML VIAL INJ ONE (19:01)
--- NOTE | 2019-04-21 19:05 | ED ---
Adult Trauma - HPI Summary HPI Summary: Pt is a 78 y/o F presenting to the ED with a chief complaint of a fall. She was walking into a football game with her friend when she tripped over a step and landed on her head. EMS stated she needed stitches, so she is here. She reports pain in her foot but no other place. Denies neck pain. Denies anticoagulant use. - History of Current Complaint Chief Complaint: EDFall Stated Complaint: FALL AND CUT ON HEAD PER PT Time Seen by Provider: 04/21/19 18:46 Hx Obtained From: Patient Mechanism of Injury: Fall Ambulatory at the Scene: Yes Loss of Consciousness: no loss of consciousness Onset/Duration: Started Hours Ago, Still Present Onset Severity: Mild Current Severity: None Pain Intensity: 0 Pain Scale Used: 0-10 Numeric Location: Head, Extremities Aggravating Factor(s): Nothing Alleviating Factor(s): Nothing Associated Signs & Symptoms: Positive: Ecchymosis - Additional Pertinent History Primary Care Physician: CHRISTINA - Allergy/Home Medications Allergies/Adverse Reactions: Allergies Allergy/AdvReac Type Severity Reaction Status Date / Time amoxicillin Allergy GI Upset Verified 04/21/19 18:43 clavulanic acid Allergy GI Upset Verified 04/21/19 18:43 phenobarbital Allergy Rash Verified 04/21/19 18:43 PMH/Surg Hx/FS Hx/Imm Hx Previously Healthy: Yes Endocrine/Hematology History: Reports: Hx Diabetes, Hx Anemia - chronic Denies: Hx Anticoagulant Therapy Cardiovascular History: Reports: Hx Angina, Hx Hypercholesterolemia, Hx Hypertension, Other Cardiovascular Problems/Disorders - right carotid stenosis 50%. Denies: Hx Pacemaker/ICD Respiratory History: Reports: Hx Asthma, Hx Chronic Obstructive Pulmonary Disease (COPD), Hx Sleep Apnea - STATES MILD . NO Tx, Other Respiratory Problems /Disorders - COPD GI History: Reports: Hx Gastroesophageal Reflux Disease History: Reports: Hx Chronic Renal Failure - stage 3 Denies: Hx Dialysis, Hx Renal Disease Musculoskeletal History: Reports: Hx Arthritis, Hx Gout Denies: Hx Osteoporosis Sensory History: Reports: Hx Cataracts, Hx Contacts or Glasses, Hx Deafness - Left ear Denies: Hx Hearing Aid Opthamlomology History: Reports: Hx Cataracts, Hx Contacts or Glasses Psychiatric History: Reports: Hx Anxiety - ON DAILY MEDS, Hx Depression Denies: Hx Panic Disorder - Surgical History Surgery Procedure, Year, and Place: tonsilectomy, left carotid endarterectomy Hx Anesthesia Reactions: No - Immunization History Date of Tetanus Vaccine: remote Date of Influenza Vaccine: 2014 Infectious Disease History: No Infectious Disease History: Denies: Hx Clostridium Difficile, Hx Hepatitis, Hx Human Immunodeficiency Virus (HIV), Hx of Known/Suspected MRSA, Hx Shingles, Hx Tuberculosis, Hx Known/ Suspected VRE, Hx Known/Suspected VRSA, History Other Infectious Disease, Traveled Outside the [place] in Last 30 Days - Family History Known Family History: Positive: Cardiac Disease, Diabetes - Social History Alcohol Use: Occasionally Alcohol Amount: 2 times a week then 3-4 hard drinks on a drinking day Hx Substance Use: No Substance Use Type: Reports: Marijuana Substance Use Comment - Amount & Last Used: USES DAILY, REFRAIN 3 DAYS PRE OP Hx Tobacco Use: No Smoking Status (MU): Never Smoked Tobacco Have You Smoked in the Last Year: No Review of Systems Positive: Myalgia. Negative: Other - neck pain Positive: Bruising, Other - lac Negative: Headache All Other Systems Reviewed And Are Negative: Yes Physical Exam - Summary Physical Exam Summary: Constitutional: Well-developed, Well-nourished, Alert. (-) Distressed Skin: Warm, Dry HENT: Normocephalic; Midline forehead laceration measuring approximately 4cm. Eyes: Conjunctiva normal Neck: Musculoskeletal ROM normal neck. (-) JVD, (-) Stridor, (-) Tracheal deviation Cardio: Rhythm regular, rate normal, Heart sounds normal; Intact distal pulses; The pedal pulses are 2+ and symmetric. Radial pulses are 2+ and symmetric. (-) Murmur Pulmonary/Chest wall: Effort normal. (-) Respiratory distress, (-) Wheezes, (-) Rales Abd: Soft, (-) tenderness, (-) Distension, (-) Guarding, (-) Rebound Musculoskeletal: (-) Edema. No bony tenderness, no posterior C-spine midline tenderness. R foot has mild tenderness to palpation over distal foot. No gross deformity. Lymph: (-) Cervical adenopathy Neuro: Alert, Oriented x3 Psych: Mood and affect Normal Triage Information Reviewed: Yes Vital Signs On Initial Exam: Initial Vitals Temp Pulse Resp BP Pulse Ox 98.1 F 53 17 135/56 96 04/21/19 18:36 04/21/19 18:36 04/21/19 18:36 04/21/19 18:36 04/21/19 18:36 Vital Signs Reviewed: Yes Procedures - Sedation Patient Received Moderate/Deep Sedation with Procedure: No - Laceration/Wound Repair 1 Anesthesia: Local, 1.0%, Lido - 5ccs Length, Depth and Shape: linear, 4cm Irrigated w/ Saline (ccs): 100 Laceration/Wound Explored: clean Closure: Single Layer Suture Type: Prolene Number of Sutures: 8 Layer Closure?: Yes Sterile Dressing Applied?: Yes Diagnostics - Vital Signs Vital Signs Temp Pulse Resp BP Pulse Ox 04/21/19 18:52 55 93 04/21/19 18:50 108/48 04/21/19 18:36 98.1 F 53 17 135/56 96 - Laboratory Lab Statement: Any lab studies that have been ordered have been reviewed, and results considered in the medical decision making process. Adult Trauma Course/Dx - Course Course Of Treatment: Pt is a 78 y/o F presenting to the ED with a chief complaint of a fall. She reports pain in her foot but no other place. Denies neck pain or headache. Denies anticoagulant use. On exam, pt has midline forehead laceration measuring approximately 4cm. No bony tenderness, no posterior C-spine midline tenderness. R foot has mild tenderness to palpation over distal foot. No gross deformity. Pt's laceration closed with 8 prolene sutures. Will be d/c'ed with dx of fall, head injury, and forehead laceration. Instructed to f/u with PCP in 5 days to remove sutures. Discussed head CT with patient, patient declined given that she denies any pain. Patient notes that she initially did not want to come to the ED however her friends encouraged her to given the forehead laceration. Patient does not take anticoagulants. Laceration repaired, patient comfortable with discharge home, ambulated with steady gait, denies headache, visual disturbance, nausea, vomiting, neck pain. States that she has a PCP appointment scheduled for tomorrow (unrelated to today 's ED visit) - Diagnoses Provider Diagnoses: Fall, Head injury, Forehead laceration Discharge ED - Sign-Out/Discharge Documenting (check all that apply): Patient Departure - Discharge Plan Condition: Stable Disposition: HOME Patient Education Materials: Care For Your Stitches (ED), Laceration (ED), Fall Prevention for Older Adults (ED), Head Injury (ED) Referrals: Aleta Qureshi MD [Primary Care Provider] - Additional Instructions: Please follow up with your primary care provider in 5 days, or come back to the emergency department, to have your sutures removed. Return to the emergency room with any new or worsening symptoms. - Billing Disposition and Condition Condition: STABLE Disposition: Home - Attestation Statements Document Initiated by Scribe: Yes Documenting Scribe: Susie Michaud Provider For Whom Yee is Documenting (Include Credential): Darwin Javier DO. Scribe Attestation: Susie Mcmillan, manueled for Darwin Javier DO. on 04/21/19 at 2141. Scribe Documentation Reviewed: Yes Provider Attestation: The documentation as recorded by the scribe, Susie Michaud accurately reflects the service I personally performed and the decisions made by , Darwin Javier DO. Status of Scribe Document: Viewed
[2019-04-21 20:38] VITALS: BP 126/60
== END 2019-04-21 20:37 | disposition home or self-care (01) ==
LOC: ED 18:35
DX: S09.90XA Unspecified injury of head, initial encounter (principal); S01.81XA Laceration without foreign body of other part of head, initial encounter; W18.09XA Striking against other object with subsequent fall, initial encounter; Y93.01 Activity, walking, marching and hiking; Y92.89 Other specified places as the place of occurrence of the external cause; E11.22 Type 2 diabetes mellitus with diabetic chronic kidney disease; I12.9 Hypertensive chronic kidney disease with stage 1 through stage 4 chronic kidney disease, or unspecified chronic kidney disease; N18.3 Chronic kidney disease, stage 3 (moderate); Z79.84 Long term (current) use of oral hypoglycemic drugs; E78.00 Pure hypercholesterolemia, unspecified; K21.9 Gastro-esophageal reflux disease without esophagitis; F41.9 Anxiety disorder, unspecified; Z88.1 Allergy status to other antibiotic agents; Z88.0 Allergy status to penicillin; Z88.8 Allergy status to other drugs, medicaments and biological substances
CPT/HCPCS: 12013; 99282

== ENCOUNTER 2020-04-28 14:18 | Inpatient (IN) ==
[~2020-04-28 14:18] MED LIST changes: -Buffered Lidocaine 0.9% SYRIN* 5 ML/SYR SYRINGE INTRADERM ONE; +Buffered Lidocaine 1% SYRIN 1 ml INTRADERM ONE; +Famotidine IV 10 MG/ML 2 ml VIAL (20 mg) IV ONE; +Lactated Ringers 1000 ml BAG 1,000 ML IV SCH; +Midazolam 2 mg/2 ml VIAL 1 mg/ml 2 ml VIAL (2 mg) ONE; +Ondansetron 4 mg VIAL 2 MG/ML 2 ml VIAL ONE; +Propofol 10 MG/ML 20 ML BTL ONE
[2020-04-28] MEDS ORDERED: ceFAZolin 2 GM PREMIX 2 GM/50 ML BAG ONE (14:30)
[2020-04-28] MEDS ORDERED: Famotidine IV 10 MG/ML 2 ml VIAL (20 mg) ONE (14:30)
[2020-04-28] MEDS ORDERED: Propofol 10 MG/ML 20 ML BTL ONE (15:12)
[2020-04-28] MEDS ORDERED: ROPIVACAINE 5 MG/ML 30 ML BTL (0.5%) ONE (15:30)
[2020-04-28] MEDS ORDERED: Levalbuterol HFA INHALER MDI ONE (15:46)
[2020-04-28] MEDS ORDERED: Ondansetron 4 mg VIAL 2 MG/ML 2 ml VIAL IV PRN ×2 (16:14→16:44)
[2020-04-28] MEDS ORDERED: Levalbuterol 0.63MG/3ML NEB UNIT OF USE INH PRN (16:14)
[2020-04-28] MEDS ORDERED: Naloxone 0.4 mg VIAL 0.4 mg/ml 1 ml VIAL IV PRN (16:14)
[2020-04-28] MEDS ORDERED: EPHEDrine (Pressors) 50 MG/ML VIAL ONE (16:32)
[2020-04-28] MEDS ORDERED: diPHENhydraMINE 25 mg TAB PO PRN (16:44)
[2020-04-28] MEDS ORDERED: Magnesium Hydroxide LIQ 30 ML UDC PO PRN (16:44)
[2020-04-28] MEDS ORDERED: oxyCODONE/Acetamin 5/325 mg TAB PO PRN (16:44)
[2020-04-28] MEDS ORDERED: Morphine 2 MG/ML SYRINGE IV PRN (16:44)
[2020-04-28] MEDS ORDERED: Ondansetron ODT 4 mg TAB 4 MG TAB PO PRN (16:44)
[2020-04-28] MEDS ORDERED: Lactulose 30 ml UDC PO PRN (16:44)
[2020-04-28] MEDS ORDERED: diPHENhydraMINE IV 50 MG/ML 1 ml VIAL (BENADRYL) IV PRN (16:44)
[2020-04-28] MEDS ORDERED: fentaNYL 100 mcg/2 ml 50 MCG/ML VIAL ONE ×2 (17:44→19:20)
[2020-04-28] MEDS ORDERED: Dextrose 50% Syringe 50 ml 25 GM/50 ML SYRINGE IV PUSH PRN (19:17)
[2020-04-28] MEDS: fentaNYL 100 mcg/2 ml 50 MCG/ML VIAL IV PRN ×3 (19:20→21:10)
[2020-04-28] MEDS ORDERED: Lactated Ringers 1000 ml BAG 1,000 ML IV ONE (20:23)
[2020-04-28 20:45] LABS: Hematocrit 22 % (35-47); Hemoglobin 7.4 g/dL (12.0-16.0)
[2020-04-28] MEDS ORDERED: Albuterol HFA INHALER 8 gm MDI INH PRN (21:26)
[2020-04-28] MEDS: Magnesium Hydroxide LIQ 30 ML UDC PO SCH (21:53)
[2020-04-28] MEDS: Lactated Ringers 1000 ml BAG 1,000 ML IV SCH (21:55)
[2020-04-28] MEDS: Sodium Bicarb 650 mg (ANTACID) TAB PO SCH (23:39)
[2020-04-29] MEDS: Clindamycin 600 MG/D5W BAG 600 MG/50 ML BAG IV SCH ×3 (00:43→15:55)
[2020-04-29 06:46] LABS: Calcium 8.5 mg/dL (8.6-10.3); Potassium 4.6 mmol/L (3.5-5.0)
[2020-04-29 06:52] LABS: BUN/Creatinine Ratio 19.9 (8-20); EGFR African American 25.3 (>60); EGFR Non-African American 20.9 (>60); Hematocrit 23 % (35-47); Hemoglobin 6.8 g/dL (12.0-16.0); Mean Platelet Volume 9.3 fL (7.4-10.4); Platelet Count 167 10^3/uL (150-450)
[2020-04-29] MEDS: Vitamin THERAPEUTIC TAB PO SCH (09:05)
[2020-04-29] MEDS: Magnesium Hydroxide LIQ 30 ML UDC PO SCH ×2 (09:05→22:30)
[2020-04-29] MEDS: Mometasone/Formoter 100/5 MDI INH SCH ×2 (09:10→21:03)
[2020-04-29] MEDS: Sodium Bicarb 650 mg (ANTACID) TAB PO SCH ×2 (10:11→11:18)
[2020-04-29] MEDS: Lactated Ringers 1000 ml BAG 1,000 ML IV SCH (15:48)
[2020-04-29 17:11] LABS: Hematocrit 24 % (35-47); Hemoglobin 7.7 g/dL (12.0-16.0)
[2020-04-30] MEDS ORDERED: NS 0.9% 250 ml 250 ML IV SCH (01:00)
[2020-04-30 02:09] LABS: Urine Creatinine Concentration 140.92 mg/dL
[2020-04-30 05:15] LABS: ABS Lymphocytes 0.3 10^3/ul (1.0-4.8); ABS Monocytes 0.5 10^3/ul (0-0.8); Eosinophil % 0.7 %; Hematocrit 24 % (35-47); Hemoglobin 7.8 g/dL (12.0-16.0); Lymphocyte % 5.7 %; Mean Corpuscular HGB Conc 33 g/dL (31-36); Mean Corpuscular Hemoglobin 30 pg (27-31); Mean Corpuscular Volume 93 fL (80-97); Mean Platelet Volume 9.2 fL (7.4-10.4); Nucleated Red Blood Cells % 0.1; Platelet Count 165 10^3/uL (150-450); Red Blood Count 2.56 10^6 /uL (3.70-4.87); Red Cell Distribution Width 17 % (10-15)
[2020-04-30 05:34] LABS: Calcium 8.3 mg/dL (8.6-10.3); Potassium 4.9 mmol/L (3.5-5.0)
[2020-04-30 05:40] LABS: BUN/Creatinine Ratio 17.9 (8-20); EGFR African American 19.3 (>60)
[2020-04-30] MEDS ORDERED: NS 0.9% 500 ml BAG 500 ML IV SCH (07:00)
[2020-04-30] MEDS: Mometasone/Formoter 100/5 MDI INH SCH ×2 (08:25→20:14)
[2020-04-30] MEDS: Magnesium Hydroxide LIQ 30 ML UDC PO SCH ×2 (08:25→21:19)
[2020-04-30] MEDS: Sodium Bicarb 650 mg (ANTACID) TAB PO SCH (08:28)
[2020-04-30] MEDS: Vitamin THERAPEUTIC TAB PO SCH (08:28)
[2020-04-30] MEDS ORDERED: Furosemide 40 mg/4 ml IV VIAL IV ONE (13:30)
[2020-04-30] MEDS ORDERED: Furosemide 40 mg/4 ml IV VIAL IV SLOW PU ONE (13:44)
[2020-04-30 17:52] LABS: ABS Eosinophils 0.1 10^3/ul (0-0.6); ABS Lymphocytes 0.3 10^3/ul (1.0-4.8); ABS Monocytes 0.4 10^3/ul (0-0.8); ABS Neutrophils 3.8 10^3/ul (1.5-7.7); Eosinophil % 1.8 %; Hematocrit 24 % (35-47); Hemoglobin 7.8 g/dL (12.0-16.0); Lymphocyte % 5.8 %; Mean Corpuscular HGB Conc 33 g/dL (31-36); Mean Corpuscular Hemoglobin 30 pg (27-31); Mean Corpuscular Volume 92 fL (80-97); Platelet Count 167 10^3/uL (150-450); Red Blood Count 2.59 10^6 /uL (3.70-4.87); Red Cell Distribution Width 17 % (10-15); White Blood Count 4.5 10^3/uL (3.5-10.8)
[2020-04-30 18:08] LABS: BUN/Creatinine Ratio 19.6 (8-20); Calcium 8.4 mg/dL (8.6-10.3); EGFR African American 19.6 (>60); EGFR Non-African American 16.2 (>60); Potassium 4.7 mmol/L (3.5-5.0)
[2020-05-01 05:23] LABS: ABS Eosinophils 0.2 10^3/ul (0-0.6); ABS Lymphocytes 0.4 10^3/ul (1.0-4.8); ABS Monocytes 0.5 10^3/ul (0-0.8); ABS Neutrophils 3.2 10^3/ul (1.5-7.7); Eosinophil % 4.7 %; Hematocrit 22 % (35-47); Hemoglobin 7.2 g/dL (12.0-16.0); Lymphocyte % 10.2 %; Mean Corpuscular HGB Conc 34 g/dL (31-36); Mean Corpuscular Hemoglobin 31 pg (27-31); Mean Corpuscular Volume 92 fL (80-97); Mean Platelet Volume 8.7 fL (7.4-10.4); Nucleated Red Blood Cells % 0.1; Platelet Count 157 10^3/uL (150-450); Red Blood Count 2.34 10^6 /uL (3.70-4.87); Red Cell Distribution Width 17 % (10-15); White Blood Count 4.3 10^3/uL (3.5-10.8)
[2020-05-01 05:44] LABS: Calcium 8.3 mg/dL (8.6-10.3); EGFR African American 19.3 (>60); Potassium 4.7 mmol/L (3.5-5.0)
[2020-05-01] MEDS: Mometasone/Formoter 100/5 MDI INH SCH ×2 (08:01→21:36)
[2020-05-01] MEDS: Vitamin THERAPEUTIC TAB PO SCH (08:10)
[2020-05-01] MEDS: Sodium Bicarb 650 mg (ANTACID) TAB PO SCH (08:10)
[2020-05-01] MEDS ORDERED: Furosemide 40 mg/4 ml IV VIAL IV SLOW PU ONE ×2 (15:00)
[2020-05-01 17:52] LABS: Hematocrit 26 % (35-47); Hemoglobin 8.7 g/dL (12.0-16.0)
[2020-05-01] MEDS: Furosemide 40 mg/4 ml IV VIAL IV SLOW PU SCH (21:21)
[2020-05-02 05:27] LABS: ABS Eosinophils 0.5 10^3/ul (0-0.6); ABS Lymphocytes 0.7 10^3/ul (1.0-4.8); ABS Monocytes 0.5 10^3/ul (0-0.8); ABS Neutrophils 3.4 10^3/ul (1.5-7.7); Eosinophil % 10.7 %; Hematocrit 25 % (35-47); Hemoglobin 8.5 g/dL (12.0-16.0); Lymphocyte % 12.9 %; Mean Corpuscular HGB Conc 33 g/dL (31-36); Mean Corpuscular Hemoglobin 30 pg (27-31); Mean Corpuscular Volume 91 fL (80-97); Nucleated Red Blood Cells % 0.1; Platelet Count 181 10^3/uL (150-450); Red Blood Count 2.81 10^6 /uL (3.70-4.87); Red Cell Distribution Width 18 % (10-15); White Blood Count 5.1 10^3/uL (3.5-10.8)
[2020-05-02 05:46] LABS: BUN/Creatinine Ratio 21.9 (8-20); Calcium 8.7 mg/dL (8.6-10.3); EGFR African American 19.9 (>60); EGFR Non-African American 16.4 (>60); Potassium 4.4 mmol/L (3.5-5.0)
[2020-05-02] MEDS: Mometasone/Formoter 100/5 MDI INH SCH ×2 (07:23→19:30)
[2020-05-02 08:41] LABS: Magnesium 3.9 mg/dL (1.9-2.7)
[2020-05-02] MEDS: Sodium Bicarb 650 mg (ANTACID) TAB PO SCH (09:11)
[2020-05-02] MEDS: Vitamin THERAPEUTIC TAB PO SCH (09:12)
[2020-05-02] MEDS: Furosemide 40 mg/4 ml IV VIAL IV SLOW PU SCH ×2 (09:13→21:17)
[2020-05-03 05:11] LABS: ABS Eosinophils 0.5 10^3/ul (0-0.6); ABS Lymphocytes 0.6 10^3/ul (1.0-4.8); ABS Monocytes 0.5 10^3/ul (0-0.8); Eosinophil % 10.2 %; Hematocrit 24 % (35-47); Hemoglobin 8.2 g/dL (12.0-16.0); Mean Corpuscular HGB Conc 34 g/dL (31-36); Mean Corpuscular Hemoglobin 30 pg (27-31); Mean Corpuscular Volume 89 fL (80-97); Mean Platelet Volume 7.8 fL (7.4-10.4); Platelet Count 194 10^3/uL (150-450); Red Blood Count 2.73 10^6 /uL (3.70-4.87); Red Cell Distribution Width 18 % (10-15); White Blood Count 4.6 10^3/uL (3.5-10.8)
[2020-05-03 05:30] LABS: BUN/Creatinine Ratio 24.6 (8-20); Calcium 8.5 mg/dL (8.6-10.3); EGFR African American 22.3 (>60); EGFR Non-African American 18.4 (>60); Potassium 3.8 mmol/L (3.5-5.0)
[2020-05-03] MEDS: Sodium Bicarb 650 mg (ANTACID) TAB PO SCH (09:53)
[2020-05-03] MEDS: Vitamin THERAPEUTIC TAB PO SCH (09:55)
[2020-05-03] MEDS: Furosemide 40 mg/4 ml IV VIAL IV SLOW PU SCH (10:08)
[2020-05-03] MEDS: Mometasone/Formoter 100/5 MDI INH SCH ×2 (10:36→21:13)
[2020-05-04 06:01] LABS: ABS Eosinophils 0.5 10^3/ul (0-0.6); ABS Lymphocytes 0.8 10^3/ul (1.0-4.8); ABS Monocytes 0.5 10^3/ul (0-0.8); ABS Neutrophils 2.9 10^3/ul (1.5-7.7); Eosinophil % 11.1 %; Hematocrit 25 % (35-47); Hemoglobin 8.3 g/dL (12.0-16.0); Lymphocyte % 16.9 %; Mean Corpuscular HGB Conc 34 g/dL (31-36); Mean Corpuscular Hemoglobin 30 pg (27-31); Mean Corpuscular Volume 90 fL (80-97); Mean Platelet Volume 8.6 fL (7.4-10.4); Nucleated Red Blood Cells % 0.1; Platelet Count 211 10^3/uL (150-450); Red Blood Count 2.74 10^6 /uL (3.70-4.87); Red Cell Distribution Width 18 % (10-15); White Blood Count 4.7 10^3/uL (3.5-10.8)
[2020-05-04 06:16] LABS: BUN/Creatinine Ratio 28.4 (8-20); Calcium 8.8 mg/dL (8.6-10.3); EGFR African American 26.3 (>60); EGFR Non-African American 21.8 (>60); Potassium 3.2 mmol/L (3.5-5.0)
[2020-05-04] MEDS: Mometasone/Formoter 100/5 MDI INH SCH (07:34)
[2020-05-04] MEDS: Sodium Bicarb 650 mg (ANTACID) TAB PO SCH (08:28)
[2020-05-04] MEDS: Potassium Chlor 20 meq TAB.ER PO SCH ×2 (08:29→11:34)
[2020-05-04] MEDS: Vitamin THERAPEUTIC TAB PO SCH (08:32)
[2020-05-04 11:26] VITALS: BP 129/56
== END 2020-05-04 17:10 | disposition home health service (06) | DRG 982 ==
LOC: OR 14:18 → SSU 14:18 → EDSTATUS 17:15
PROVIDERS: ADMIT Orthopaedic Surgery Adult Reconstructive Orthopaedic Surgery; ATTEND Orthopaedic Surgery Adult Reconstructive Orthopaedic Surgery